=== PATIENT | female | born 2000 | race Caucasian/White ===

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

== ENCOUNTER 2019-02-20 11:51 | Emergency (ER) | payer OTHER ==
[~2019-02-20] VITALS: Ht 172.7 cm; Wt 79.1 kg
[2019-02-20] MEDS ORDERED: DIAZEPAM 5 MG TABLET PO ONE (12:15)
[2019-02-20 14:24] VITALS: BP 123/73
== END 2019-02-20 14:39 | disposition home or self-care (01) ==
LOC: EMS 11:51
DX: M26.602 Left temporomandibular joint disorder, unspecified (principal); R03.0 Elevated blood-pressure reading, without diagnosis of hypertension
CPT/HCPCS: 70110